=== PATIENT | male | born 1975 | race African-American/Black ===

== ENCOUNTER 2020-07-22 06:05 | Emergency (ER) | payer BC ==
[~2020-07-22] VITALS: Ht 180.3 cm; Wt 124.0 kg
[2020-07-22] MEDS ORDERED: LISI10TA26 PO (07:05)
[2020-07-22] MEDS ORDERED: KETOROLAC 60MG/2ML VIAL IM ONE (07:15)
[2020-07-22 07:48] LABS: CLARITY URINE CLEAR (CLEAR); COLOR URINE YELLOW (YELLOW); KETONES URINE NEGATIVE (NEGATIVE); LEUKOCYTE ESTERASE URINE NEGATIVE (NEGATIVE); NITRITE URINE NEGATIVE (NEGATIVE); OCCULT BLOOD URINE 1+ (NEGATIVE); PROTEIN URINE NEGATIVE (NEGATIVE); SPECIFIC GRAVITY URINE 1.016 (1.005-1.030); UROBILINOGEN URINE 0.2 E.U./dL (0.2-1.0)
[2020-07-22] MEDS ORDERED: KETO10TA2 MT (08:28)
[2020-07-22 08:38] VITALS: BP 157/99
== END 2020-07-22 08:45 | disposition home or self-care (01) ==
LOC: ER 06:37
DX: N20.0 Calculus of kidney (principal); I10 Essential (primary) hypertension; Z98.890 Other specified postprocedural states
CPT/HCPCS: 81003; 96372; 99283; J1885